=== PATIENT | male | born 1985 | race Two or more races ===

== ENCOUNTER 2019-12-13 19:29 | Emergency (ER) | payer SELFPAY ==
[~2019-12-13] VITALS: Ht 195.6 cm; Wt 117.9 kg
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
--- NOTE | 2019-12-13 19:40 | NUR ---
ED Nurse Note: BLOOD DRAWN AND SENT TO LAB. UNABLE TO COLLECT URINE AT THIS TIME. WILL ATTEMPT AT A LATER TIME.
[2019-12-13 19:45] VITALS: BP 133/78
[2019-12-13] MEDS ORDERED: levETIRAcetam 1,000mg/NS100ml 100 ML IVPB ONE (19:45)
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
[2019-12-13 20:02] LABS: BASOPHILS % (AUTO) 1.3 % (0.0-2.0); EOSINOPHILS % (AUTO) 1.5 % (0.0-3.0); HEMATOCRIT 46.7 % (42.0-52.0); HEMOGLOBIN 15.4 G/DL (14.2-18.0); LYMPHOCYTES % (AUTO) 26.3 % (20.0-45.0); MEAN CORPUSCULAR VOLUME 82 FL (80-99); MONOCYTES % (AUTO) 8.3 % (1.0-10.0); NEUTROPHILS % (AUTO) 62.7 % (45.0-75.0); PLATELET COUNT 398 K/UL (150-450); RED BLOOD COUNT 5.73 M/UL (4.70-6.10); RED CELL DISTRIBUTION WIDTH 13.2 % (11.6-14.8); WHITE BLOOD COUNT 12.9 K/UL (4.8-10.8)
[2019-12-13 20:10] LABS: ANION GAP 21 mmol/L (5-15); BLOOD UREA NITROGEN 12 mg/dL (7-18); CALCIUM 9.7 MG/DL (8.5-10.1); CARBON DIOXIDE 18 MMOL/L (21-32); CHLORIDE 103 MMOL/L (98-107); CREATININE 1.5 MG/DL (0.55-1.30); POTASSIUM 3.7 MMOL/L (3.5-5.1); SODIUM 142 MMOL/L (136-145)
[2019-12-13 20:15] LABS: ALANINE AMINOTRANSFERASE 37 U/L (12-78); ALBUMIN 4.5 G/DL (3.4-5.0); ALKALINE PHOSPHATASE 128 U/L (46-116); ASPARTATE AMINO TRANSFERASE 19 U/L (15-37); BILIRUBIN,TOTAL 0.6 MG/DL (0.2-1.0)
--- NOTE | 2019-12-13 20:21 | NUR ---
ED Nurse Note: urine collected and sent to lab
[2019-12-13] MEDS ORDERED: KEPPRA500 M4 ORAL (22:03)
[2019-12-13 22:50] VITALS: BP 132/72
--- NOTE | 2019-12-13 22:50 | NUR ---
ER DISCHARGE NOTE: Patient is cleared to be discharged per ERMD, pt is aox4, on room air, with stable vital signs. pt was given dc instructions, pt was able to verbalize understanding, pt id band and iv site removed without complications. pt is able to ambulate with steady gait. pt took all belongings.
== END 2019-12-13 22:50 | disposition home or self-care (01) ==
LOC: EDBD 19:29 → EMR 19:51
DX: G40.909 Epilepsy, unspecified, not intractable, without status epilepticus (principal); F15.10 Other stimulant abuse, uncomplicated; Z72.89 Other problems related to lifestyle
CPT/HCPCS: 36415; 80053; 80307; 85025; 96361; 96374; 99284; G0480; J1953; J7030